=== PATIENT | male | born 1995 | race Caucasian/White ===

== ENCOUNTER 2017-02-16 20:09 | Emergency (ER) | payer SELFPAY ==
--- NOTE | 2017-02-18 04:19 | ER ---
ADMIT: 02/16/2017 RM/LOC: ER [facility] MR#: [id number] [address] [id number] JAVI COLES [address] [place] [id number] Emergency Room Report SEX: M AGE: 21 : 1995 DATE: 02/16/2017 ADDENDUM: See T-sheet for complete H and P. A 21-year-old male, states he has had a little bit of a cough and thinks he might have had some bloody sputum just a small amount a couple of times earlier today when he was coughing. He states he feels just a little bit drained, does not have any fevers. Denies any chest pain. Does not feel like he is going to pass out or lightheaded, but just feels like he is generally a little more weak than normal. His past medical history is unremarkable, and he smokes few cigarettes a day. On physical exam, there were no acute findings. See T-sheet for complete physical exam. Chest x-ray shows what could be a slight infiltrate in his left upper lobe. CBC was normal. INR is less than 1. We did check orthostatics, which were unremarkable. Due to the finding on the chest x-ray, I am going to put the patient on a Z-Dagoberto and then have him follow up with Dr. oJsue Avila if his symptoms are not completely resolved. He is told he can return to the ER at any point. Francesco Tellez MD/ omer JOB #: [id number] CC: Francesco Tellez MD, Attending Physician Kristi Peterson MD, Family Physician
== END 2017-02-16 22:20 | disposition home or self-care (01) ==
LOC: ER 20:09
DX: R05 Cough (principal); F17.210 Nicotine dependence, cigarettes, uncomplicated